=== PATIENT | male | born 1960 | race Two or more races ===

== ENCOUNTER 2024-09-12 06:25 | Day surgery (SDC) | payer OTHER, MEDICAID ==
[~2024-09-12] VITALS: Ht 172.7 cm; Wt 86.2 kg
[2024-09-12] VITALS (10 sets, daily range): BP systolic 123–167; BP diastolic 57–77; PULSE 47–57; RESP 12–16; O2SAT 96–100
[~2024-09-12 06:25] MED LIST: ASPI-543 PO; ATOR-47 PO; CARV6.2551 PO; COEN100C15 PO; EMPA1TAB3 PO; EZET10TA22 PO; INSLANTI SC; INSU1INJ19 SC; KRIL300C2 PO; METF-370 PO; MULT-1018 PO; PANT40T PO; POM; TAMS-35 PO
[2024-09-12] MEDS ORDERED: IODIXANOL 320MG/ML 100ML BTL IV ONE (07:48)
[2024-09-12] MEDS ORDERED: HEPARIN IN NS 1000Units/500mL 1,500 ML ONE (07:50)
[2024-09-12] MEDS ORDERED: HEPARIN SODIUM (PORCINE) 5000 UNITS/ML 1ML VIAL ONE (08:21)
[2024-09-12] MEDS ORDERED: ANGIOMAX 250 MG VIAL IV ONE (08:21)
[2024-09-12] MEDS ORDERED: MIDAZOLAM HCL 2MG/2ML 2ml VIAL (1mg/ml) ONE (08:22)
[2024-09-12] MEDS ORDERED: SODIUM CHL 0.9% 50 ML ONE (08:22)
[2024-09-12] MEDS ORDERED: fentaNYL CITRATE 100 MCG/2 ML VL ONE (08:22)
[2024-09-12] MEDS ORDERED: VERAPAMIL 2.5MG/ML INJ 2ML VIAL IV ONE (08:22)
[2024-09-12] MEDS ORDERED: LIDOCAINE 2%HCL (LOCAL ANESTH.) INJ 20ML MDV ONE (08:22)
[2024-09-12] MEDS ORDERED: TICAGRELOR 90 MG TAB ONE (09:57)
[2024-09-12] MEDS ORDERED: ASPirin 325 MG TAB ONE (09:58)
--- NOTE | 2024-09-12 10:22 | DVHOP2 ---
Operative Report Procedures performed: Left heart catheterization, bilateral coronary angiogram, bypass angiography and ascending aortogram. Ultrasound guided access PCI (drug-eluting stent deployment) of LCX (proximal to distal) Moderate sedation (80 minutes) Diagnosis: Multivessel mcgrath coronary artery disease Patent WELCH to LAD Patent SVG to diagonal Patent SVG to RPDA LVEF of 50% with normal LVEDP Status post PCI (drug-eluting stent deployment) of LCX (mcgrath vessel had 90% lesion before intervention) Cardiac suggestion for management: Optimized medical therapy Dual antiplatelet therapy (loaded with aspirin/Brilinta) for at least 1 year High potency statin, beta fide and CHICHO inhibitor versus Arb Lifestyle and risk factor modifications Findings: LVEF: 50% LVEDP: 3 mm Hg There was no transaortic valve pressure gradient Left main: Left main was coming off the left sinus of Valsalva. There was no significant disease in left main. LAD: LAD was FIRE PREVENTION BUREAU CAPTAIN at its ostium. LAD was nourished via a patent WELCH. There was a patent SVG to diagonal also Ramus intermedius: Ramus intermedius was a medium-sized vessel with moderate diffuse disease which originated from left main LCX: LCX was coming off the left main. OM1 was a small-sized vessel. OM2 was a large-sized vessel with mild diffuse disease. Proximal section of LCX at 75% lesion. Distal LCX had 90% long lesion. LCX itself continued as a large OM. RCA: RCA was coming off the right sinus of Valsalva. It was the dominant vessel and provided the original RPDA. Proximal RCA had 95% lesion. Mid RCA was FIRE PREVENTION BUREAU CAPTAIN. Distal RCA and RPDA were nourished by a patent SVG. WELCH to LAD was patent with no significant disease. SVG to diagonal was patent with no significant disease. SVG to RPDA was patent with mild diffuse disease. Presentation: Patient is a 64-year-old gentleman who presented with dyspnea on exertion and chest discomfort to the office. Past medical history includes hypertension, hyperlipidemia, BPH, diabetes mellitus, peripheral artery disease and coronary artery disease (status post CABG: Welch to LAD, SVG to diagonal/PDA). Echocardiogram of April 2024 revealed preserved left ventricular systolic function, mild concentric left ventricular hypertrophy, mild biatrial enlargement, mild MR/TR, minimal MVP and right ventricular systolic pressure of less than 35 mm Hg. Nuclear stress test of April 2024 was abnormal and the patient was sent for cardiac catheterization. Procedure: After obtaining informed consent, the patient was brought to the excavation laborer. He was prepped and draped in sterile fashion. 2 mg of Versed and 75 mcg of fentanyl were used for moderate sedation (lasting 80 minutes). At first, we obtain access in left radial for procedure. Using modified Seldinger technique, the left radial artery was accessed and a 6 Nauruan slender sheath was inserted into it. 2.5 mg of verapamil and 100 mcg of nitroglycerin were given as a cocktail into right radial sheath. A 4 Nauruan JL 4 diagnostic catheter was used to perform left coronary angiography. A 4 Naur[place] JR4 diagnostic catheter was used to perform left heart catheterization (obtaining pressures and performing left ventriculography), right coronary angiography and SVG to diagonal angiography. At this point, the patient started to have significant pain/spasm in the left upper extremity and decision was made to abandon this access. At this point we accessed the right femoral artery. Using micropuncture and under fluoroscopy guidance, the right femoral artery was accessed. After angiographically we proved a good access point, the micropuncture sheath was exchanged over a wire to the 6 Nauruan femoral sheath. A 6 Nauruan right bypass catheter was used perform SVG angiography to PDA. A 6 Nauruan pigtail was used to perform ascending aortography. At this point we decided to proceed to intervene in the LCX (there was no bypass graft to LCX territory). A 6 Nauruan XB 3.5 guiding catheter was used to access the left coronary system. Run-through wire was used to cross the lesions into the distal LCX. A 2.25 compliant balloon was used for predilatation. We deployed a 2.25 x 26 drug-eluting stent in distal LCX (inflated to 2.4 in size). We decided to proceed with deploying another stent in proximal LCX. A 2.25 x 15 drug-eluting stent was deployed across the lesion in proximal LCX (inflated to 2.4 in size). We used the noncompliant balloon for postdilatation. There was no dissection/hematoma/perforation. Patient tolerated the procedure with no complication. It is of note that prior to intervention, LUZMA flow into LCX was LUZMA 3 flow. Post intervention, LUZMA flow remained LUZMA 3 flow. Post intervention, remaining disease in LCX was 0%. Left radial artery access site was managed by deploying a TR band. Right femoral artery access site was managed by deploying an Angio-Seal device. Fluoroscopy time: 29.8 minutes contrast: 200 mL of INGRID Whitfield MD Sep 12, 2024 10:22
--- NOTE | 2024-09-12 13:34 | DVH ---
XY R KNEE 2V XRAY, INDICATION: s/p fall TECHNICAL DATA: Frontal and lateral views were obtained of the right knee. COMPARISON: None FINDINGS: No fracture is identified. Medial, lateral and patellofemoral compartment joint spaces are maintained . Alignment is anatomic. Soft tissues are within normal limits. No joint effusion is demonstrated. IMPRESSION: No acute fracture or dislocation of the right knee.
== END 2024-09-12 13:22 | disposition home or self-care (01) ==
LOC: CATH 06:25
PROVIDERS: ATTEND Internal Medicine Cardiovascular Disease
DX: I25.10 Atherosclerotic heart disease of native coronary artery without angina pectoris (principal); I10 Essential (primary) hypertension; E11.51 Type 2 diabetes mellitus with diabetic peripheral angiopathy without gangrene; E78.5 Hyperlipidemia, unspecified; Z87.74 Personal history of (corrected) congenital malformations of heart and circulatory system; Z95.5 Presence of coronary angioplasty implant and graft; Z79.899 Other long term (current) drug therapy; Z98.890 Other specified postprocedural states
CPT/HCPCS: 73560; 93459; C1725; C1760; C1769; C1874; C1894; C9600; J0583; J1644; J2250; J3010; Q9967; 99152; 99153